=== PATIENT | male | born 1955 | race American Indian/Alaskan Native ===

== ENCOUNTER 2019-10-05 19:23 | Inpatient (IN) | payer MEDICAID ==
[2019-10-05 19:56] LABS: Basophils % (Auto) 0.9 % (0.0-1.8); Eosinophils # (Auto) 0.3 K/mm3 (0.0-0.4); Eosinophils % (Auto) 7.4 % (0.0-4.3); Hematocrit 38.6 % (35.5-45.6); Hemoglobin 12.9 gm/dl (11.8-15.2); Lymphocytes # (Auto) 1.1 K/mm3 (1.2-5.4); Lymphocytes % (Auto) 26.8 % (13.4-35.0); Mean Corpuscular HGB Conc 34 % (32-34); Mean Corpuscular Volume 98 fl (84-94); Monocytes # (Auto) 0.3 K/mm3 (0.0-0.8); Monocytes % (Auto) 6.7 % (0.0-7.3); Platelet Count 148 K/mm3 (140-440); Red Blood Count 3.94 M/mm3 (3.65-5.03); Red Cell Distribution Width 13.4 % (13.2-15.2)
[2019-10-05 20:10] LABS: INR 1.19 (0.87-1.13)
[2019-10-05 20:11] LABS: Partial Thromboplastin Time 30.6 Sec. (24.2-36.6)
[2019-10-05 20:18] LABS: Alanine Aminotransferase 30 units/L (7-56); Albumin 3.6 g/dL (3.9-5); BUN/Creatinine Ratio 16; Blood Urea Nitrogen 16 mg/dL (9-20); Calcium 9.3 mg/dL (8.4-10.2); Hemolysis Index 6
[2019-10-05] MEDS ORDERED: NITROGLYCERIN 2% OINT 1 GM TP ONE (20:50)
[2019-10-05] MEDS ORDERED: HYDROcodone/ACETAMINOPHEN 5-325 MG TAB PO ONE (20:50)
--- NOTE | 2019-10-05 21:16 | Emergency Department Report ---
ED Chest Pain HPI - General Chief Complaint: Chest Pain Stated Complaint: SHARP CHEST PAIN LEG PAIN Time Seen by Provider: 10/05/19 19:34 Source: patient Mode of arrival: Ambulatory Limitations: No Limitations - History of Present Illness Initial Comments: 63-year-old male with a past medical history of GERD, CAD with stent x2, CVA with residual right-sided weakness, asthma, and cocaine abuse presents to the hospital from [facility] due to chest pain and right leg pain. Patient states he is also had a left jaw pain as per order written from [place] patient was sent to the ER for severe pain to right leg and to rule out DVT. Patient was medically cleared on 10/04/2019 for suicidal ideation, auditory hallucinations, and depression by [facility]. This work-up was reviewed and included to negative troponins, negative portable chest x-ray, and a UDS positive for cocaine and opioids. Patient denies opiate abuse and states he was provided Percocet at the hospital. Patient states he has had a right lower extremity pain for the past 4 days and was told by the doctor at [place] it may be due to muscle spasm. Patient is also currently on Xarelto Patient is a poor historian. Initially states that he had 2 stents placed several months ago. When questioned why he was on Xarelto it seems as though he was diagnosed with a "PE" pulmonary embolism at this time as well. History of pulmonary embolism is not documented on his past medical history that presented with him from [place] and previous clearance hospital. Patient does states he has a card showing where his cardiac stents are but it is at home. Severity scale (0 -10): 10 - Related Data Home Medications Medication Instructions Recorded Confirmed Last Taken Aspirin EC [Halfprin EC] 1 tab PO DAILY 10/06/19 10/06/19 10/05/19 Atorvastatin [Lipitor] 80 mg PO QHS 10/06/19 10/06/[address] [Depakote Dr] 250 mg PO QAM 10/06/19 10/06/19 Unknown Divalproex ER [Depakote ER] 500 mg PO QHS 10/06/19 10/06/19 Unknown Gabapentin 300 mg PO BID 10/06/19 10/06/19 Unknown ISOSORBIDE MONOnitrate [Imdur ER] 60 mg PO QDAY 10/06/19 10/06/19 Unknown Mirtazapine [Remeron 15mg TAB] 15 mg PO QHS 10/06/19 10/06/19 Unknown Nitroglycerin [Nitrostat] 0.4 mg SL PRN PRN 10/06/19 10/06/19 Unknown Pantoprazole [Protonix TAB] 40 mg PO QDAY 10/06/19 10/06/19 Unknown Rivaroxaban [Xarelto] 10 mg PO QDAY 10/06/19 10/06/19 Unknown amLODIPine 10 mg PO DAILY 10/06/19 10/06/19 Unknown diphenhydrAMINE [Benadryl CAP] 50 mg PO Q4HR PRN 10/06/19 10/06/19 Unknown haloperidoL [Haldol] 5 mg PO Q4HR PRN 10/06/19 10/06/19 Unknown lisinopriL [Zestril TAB] 20 mg PO QDAY 10/06/19 10/06/19 Unknown methOCARBAMOL [Robaxin TAB] 750 mg PO BID 10/06/19 10/06/19 Unknown Previous Rx's Medication Instructions Recorded Last Taken Type ARIPiprazole [Abilify TAB] 2 mg PO DAILY #30 tab 10/07/19 Unknown Rx Allergies Allergy/AdvReac Type Severity Reaction Status Date / Time carvedilol [From Coreg] AdvReac Unknown Verified 10/05/19 21:19 Penicillins AdvReac Unknown Verified 10/05/19 21:19 Sulfa (Sulfonamide AdvReac Unknown Verified 10/05/19 21:19 Antibiotics) Heart Score - HEART Score History: Slightly suspicious EKG: Non-specific Age: 45-65 Risk factors: > 3 risk factors or hx of atherosclerotic disease Troponin: < normal limit HEART Score: 4 ED Review of Systems ROS: Stated complaint: SHARP CHEST PAIN LEG PAIN Other details as noted in HPI Comment: All other systems reviewed and negative ED Past Medical Hx - Past Medical History Previous Medical History?: Yes Hx CVA: Yes Hx Heart Attack/AMI: Yes (2010, 2 stents ?placed this year) Hx Asthma: Yes - Surgical History Past Surgical History?: No - Social History Smoking Status: Never Smoker Substance Use Type: None - Medications Home Medications: Home Medications Medication Instructions Recorded Confirmed Last Taken Type Aspirin EC [Halfprin EC] 1 tab PO DAILY 10/06/19 10/06/1910/04/20 History Atorvastatin [Lipitor] 80 mg PO QHS 10/06/19 10/06/[address] [Depakote Dr] 250 mg PO QAM 10/06/19 10/06/19 Unknown History Divalproex ER [Depakote ER] 500 mg PO QHS 10/06/19 10/06/19 Unknown History Gabapentin 300 mg PO BID 10/06/19 10/06/19 Unknown History ISOSORBIDE MONOnitrate [Imdur ER] 60 mg PO QDAY 10/06/19 10/06/19 Unknown History Mirtazapine [Remeron 15mg TAB] 15 mg PO QHS 10/06/19 10/06/19 Unknown History Nitroglycerin [Nitrostat] 0.4 mg SL PRN PRN 10/06/19 10/06/19 Unknown History Pantoprazole [Protonix TAB] 40 mg PO QDAY 10/06/19 10/06/19 Unknown History Rivaroxaban [Xarelto] 10 mg PO QDAY 10/06/19 10/06/19 Unknown History amLODIPine 10 mg PO DAILY 10/06/19 10/06/19 Unknown History diphenhydrAMINE [Benadryl CAP] 50 mg PO Q4HR PRN 10/06/19 10/06/19 Unknown History haloperidoL [Haldol] 5 mg PO Q4HR PRN 10/06/19 10/06/19 Unknown History lisinopriL [Zestril TAB] 20 mg PO QDAY 10/06/19 10/06/19 Unknown History methOCARBAMOL [Robaxin TAB] 750 mg PO BID 10/06/19 10/06/19 Unknown History ARIPiprazole [Abilify TAB] 2 mg PO DAILY #30 tab 10/07/19 Unknown Rx ED Physical Exam - General Limitations: No Limitations - Other Other exam information: General: No acute distress Head: Atraumatic Eyes: normal appearance ENT: Patient has tenderness at the left mandible area. Patient does not have most of his teeth at this area but of the posterior molar area appears to have residual dental Vandana. No gum swelling, facial swelling, or visible abscess Neck: Normal appearance, no midline tenderness Chest: Clear to auscultation bilaterally CV: Regular rate and rhythm Abdomen: Soft, normal bowel sounds, nontender, nondistended, no rebound or guarding Back: Normal inspection Extremity: Normal inspection, no edema or leg asymmetry. Tenderness to right posterior calf and popliteal area. Unable to palpate DP pulse but it is audible with Doppler Neuro: Alert O x 3, no facial asymmetry, speech clear, 4+/5 strength left arm compared to 5/5 on the right Psych: Appropriate behavior Skin: No rash ED Course Vital Signs 10/05/19 10/05/19 10/05/19 19:28 19:40 19:46 Temperature 98.3 F Pulse Rate 78 75 Respiratory 25 H 24 Rate Blood Pressure Blood Pressure [left arm] O2 Sat by Pulse 94 96 98 Oximetry 10/05/19 10/05/19 10/05/19 19:49 20:00 20:16 Temperature Pulse Rate 77 78 Respiratory 22 15 Rate Blood Pressure 146/87 Blood Pressure 146/87 [left arm] O2 Sat by Pulse 98 98 Oximetry 10/05/19 10/05/19 10/05/19 20:30 20:46 20:55 Temperature Pulse Rate 80 91 H 79 Respiratory 22 23 Rate Blood Pressure 146/87 146/87 150/82 Blood Pressure [left arm] O2 Sat by Pulse 99 99 Oximetry 10/05/19 10/05/19 10/05/19 21:00 21:16 21:30 Temperature Pulse Rate 79 69 74 Respiratory 17 16 24 Rate Blood Pressure 146/87 129/78 129/78 Blood Pressure [left arm] O2 Sat by Pulse 97 99 98 Oximetry 10/05/19 10/05/19 10/05/19 21:46 22:00 22:16 Temperature Pulse Rate 77 73 72 Respiratory 22 19 25 H Rate Blood Pressure 129/78 129/78 125/71 Blood Pressure [left arm] O2 Sat by Pulse 98 98 99 Oximetry 10/05/19 10/05/19 10/05/19 22:30 22:46 23:01 Temperature Pulse Rate 77 Respiratory 13 13 14 Rate Blood Pressure 125/71 125/71 152/70 Blood Pressure [left arm] O2 Sat by Pulse 97 97 99 Oximetry 10/05/19 10/05/19 10/05/19 23:04 23:15 23:27 Temperature Pulse Rate 82 Respiratory 17 19 Rate Blood Pressure 125/71 125/71 Blood Pressure [left arm] O2 Sat by Pulse 90 Oximetry 10/05/19 10/05/19 10/05/19 23:31 23:41 23:51 Temperature Pulse Rate Respiratory 25 H 22 16 Rate Blood Pressure 125/71 125/71 125/71 Blood Pressure [left arm] O2 Sat by Pulse Oximetry 10/06/19 10/06/19 10/06/19 00:01 00:11 00:45 Temperature 97.6 F Pulse Rate 89 Respiratory 15 22 18 Rate Blood Pressure 143/76 143/76 156/88 Blood Pressure [left arm] O2 Sat by Pulse 95 Oximetry ERICK score - Erick Score Age > 65: (0) No Aspirin use within the Past 7 Days: (0) No 3 or more CAD Risk Factors: (1) Yes 2 or more Angina events in past 24 hrs: (1) Yes Known CAD with more than 50% Stenosis: (1) Yes Elevated Cardiac Markers: (0) No ST Deviation Greater than 0.5mm: (0) No ERICK Score: 3 ED Medical Decision Making - Lab Data Result diagrams: 10/05/19 19:37 10/05/19 19:37 Lab Results 10/05/19 10/05/19 10/05/19 Range/Units 19:37 19:37 19:37 WBC 4.3 L (4.5-11.0) K/mm3 RBC 3.94 (3.65-5.03) M/mm3 Hgb 12.9 (11.8-15.2) gm/dl Hct 38.6 (35.5-45.6) % MCV 98 H (84-94) fl MCH 33 H (28-32) pg MCHC 34 (32-34) % RDW 13.4 (13.2-15.2) % Plt Count 148 (140-440) K/mm3 Lymph % (Auto) 26.8 (13.4-35.0) % [place] % (Auto) 6.7 (0.0-7.3) % Eos % (Auto) 7.4 H (0.0-4.3) % Baso % (Auto) 0.9 (0.0-1.8) % Lymph # 1.1 L (1.2-5.4) K/mm3 [place] # 0.3 (0.0-0.8) K/mm3 Eos # 0.3 (0.0-0.4) K/mm3 Baso # 0.0 (0.0-0.1) K/mm3 Seg Neutrophils % 58.2 (40.0-70.0) % Seg Neutrophils # 2.5 (1.8-7.7) K/mm3 PT 14.9 (12.2-14.9) Sec. INR 1.19 H (0.87-1.13) APTT 30.6 (24.2-36.6) Sec. D-Dimer 300.84 H (0-234) ng/mlDDU Sodium 141 (137-145) mmol/L Potassium 4.1 (3.6-5.0) mmol/L Chloride 106.8 (98-107) mmol/L Carbon Dioxide 22 (22-30) mmol/L Anion Gap 16 mmol/L BUN 16 (9-20) mg/dL Creatinine 1.0 (0.8-1.5) mg/dL Estimated GFR > 60 ml/min BUN/Creatinine Ratio 16 % Glucose 119 H (75-100) mg/dL Calcium 9.3 (8.4-10.2) mg/dL Total Bilirubin 0.30 (0.1-1.2) mg/dL AST 25 (5-40) units/L ALT 30 (7-56) units/L Alkaline Phosphatase 122 (35-129) units/L Troponin T < 0.010 (0.00-0.029) ng/mL Total Protein 6.7 (6.3-8.2) g/dL Albumin 3.6 L (3.9-5) g/dL Albumin/Globulin Ratio 1.2 % - EKG Data -: EKG Interpreted by Me (LVH, RBBB) EKG shows normal: sinus rhythm, ST-T waves (no stemi) Rate: normal (78) - EKG Data When compared to previous EKG there are: previous EKG unavailable - Radiology Data Radiology results: report reviewed CHEST 1 VIEW INDICATION: MAIN: Chest Pain; Leg pain and Mid CP started today, pain radiates to left arm and left jaw, describes pain as sharp 8/10. COMPARISON: none FINDINGS: SUPPORT DEVICES: None. HEART / MEDIASTINUM: No significant abnormality. LUNGS / PLEURA: No significant pulmonary or pleural abnormality. No pneumothorax. ADDITIONAL FINDINGS: IMPRESSION: 1. No acute cardiopulmonary disease CTA CHEST WITH IV CONTRAST INDICATION / CLINICAL INFORMATION: MAIN: cp, pt c/o rt lower extremity pain, 100cc [id number]. TECHNIQUE: Axial CT images were obtained through the chest after injection of IV contrast. 3 plane MIP and/or 3D reconstructions were produced. All CT scans at this location are performed using CT dose reduction for ALARA by means of automated exposure control. COMPARISON: None available. FINDINGS: PULMONARY ARTERIES: No pulmonary emboli. THORACIC AORTA: No significant abnormality. HEART: Mild cardiac enlargement CORONARY ARTERIES: No significant calcification. Coronary stents in place. PLEURA: No pleural effusion. No pneumothorax. LYMPH NODES: Several prominent lymph nodes within the mediastinum LUNGS: No acute air space or interstitial disease. ADDITIONAL FINDINGS: None. UPPER ABDOMEN: Small hiatal hernia is present. SKELETAL STRUCTURES: No significant osseous abnormality. IMPRESSION: 1. No CT evidence for pulmonary embolism. 2. Mild cardiac enlargement - Medical Decision Making Patient presents to the ED with chest pain x1 day and right leg pain x4 days. Cough possible history of pulmonary embolism unknown if history of DVT.. CT ang iogram negative for pulmonary embolism. Unable to obtain Doppler of right leg today however, but no leg edema noted and patient is currently on Xarelto. Patient treated in the ED with [place] and nitroglycerin paste will be admitted due to chest pain for medical clearance prior to transport back to [place]. Critical Care Time: No Critical care attestation.: If time is entered above; I have spent that time in minutes in the direct care of this critically ill patient, excluding procedure time. ED Disposition Clinical Impression: Chest pain, Right leg pain, assistant terminal manager (current) use of anticoagulants, History of heart artery stent, History of pulmonary embolism, Suicidal ideation, Depression, Cocaine abuse Disposition: OP ADMIT IP TO THIS HOSP Is pt being admited?: Yes Condition: Fair Time of Disposition: 22:27 (Dr Ashley/hosp)
[2019-10-05] MEDS ORDERED: ONDANSETRON 4 MG/2 ML INJ IV PRN (23:28)
[2019-10-05] MEDS ORDERED: ACETAMINOPHEN 325 MG TAB PO PRN (23:30)
[2019-10-05] MEDS ORDERED: NITROGLYCERIN 0.4 MG TAB SUBL SL PRN (23:33)
[2019-10-06] MEDS: MORPHINE 2 MG/1 ML INJ IV PRN ×5 (00:57→19:42)
[2019-10-06 01:37] LABS: Creatine Kinase MB 2.7 ng/mL (0.0-4.0)
[2019-10-06] MEDS: NITROGLYCERIN 2% OINT 1 GM TP SCH ×4 (05:24→17:43)
[2019-10-06 07:57] LABS: Creatine Kinase MB 2.3 ng/mL (0.0-4.0)
[2019-10-06] MEDS ORDERED: REGADENOSON 0.4 MG/5 ML INJ IV ONE ×2 (08:04→08:10)
[2019-10-06] MEDS: ASPIRIN 81 MG TAB CHEW PO SCH (11:50)
[2019-10-06] MEDS ORDERED: TEMAZEPAM 15 MG CAP PO ONE (21:37)
[2019-10-07] MEDS: MORPHINE 2 MG/1 ML INJ IV PRN ×7 (00:29→21:50)
[2019-10-07] MEDS: NITROGLYCERIN 2% OINT 1 GM TP SCH ×4 (05:33→18:24)
[2019-10-07] MEDS: ASPIRIN 81 MG TAB CHEW PO SCH (09:35)
[2019-10-07] MEDS ORDERED: NITROGLYCERIN 0.4 MG TAB SUBL SL PRN (09:42)
[2019-10-07] MEDS ORDERED: HALOPERIDOL 5 MG TAB PO PRN (09:42)
[2019-10-07] MEDS ORDERED: diphenhydrAMINE 50 MG CAP PO PRN (09:42)
[2019-10-07] MEDS: LISINOPRIL 20 MG TAB PO SCH (11:37)
[2019-10-07] MEDS: GABAPENTIN 300 MG CAP PO SCH ×2 (11:37→21:51)
[2019-10-07] MEDS: DIVALPROEX DR 250 MG TAB PO SCH (11:38)
[2019-10-07] MEDS: amLODIPine 10 MG TAB PO SCH (11:38)
[2019-10-07] MEDS: RIVAROXABAN 10 MG TAB PO SCH (12:30)
[2019-10-07] MEDS: ASPIRIN EC 81 MG TAB PO SCH (12:36)
[2019-10-07] MEDS: PANTOPRAZOLE 40 MG TAB PO SCH (12:37)
[2019-10-07] MEDS ORDERED: ARIPiprazole 5 MG TAB PO SCH (13:00)
[2019-10-07] MEDS: ARIPiprazole 5 MG TAB PO SCH (18:24)
[2019-10-07] MEDS ORDERED: MIRTAZAPINE 15 MG TAB PO SCH (22:00)
[2019-10-07] MEDS ORDERED: DIVALPROEX ER 500 MG TAB PO SCH (22:00)
[2019-10-08] MEDS: MORPHINE 2 MG/1 ML INJ IV PRN ×2 (05:42→13:17)
[2019-10-08] MEDS: NITROGLYCERIN 2% OINT 1 GM TP SCH ×3 (05:42→14:18)
[2019-10-08] MEDS: ASPIRIN EC 81 MG TAB PO SCH (09:16)
[2019-10-08] MEDS: RIVAROXABAN 10 MG TAB PO SCH (09:17)
[2019-10-08] MEDS: PANTOPRAZOLE 40 MG TAB PO SCH (09:17)
[2019-10-08] MEDS: LISINOPRIL 20 MG TAB PO SCH (09:17)
[2019-10-08] MEDS: amLODIPine 10 MG TAB PO SCH (09:18)
[2019-10-08] MEDS: ARIPiprazole 5 MG TAB PO SCH (09:18)
[2019-10-08] MEDS: DIVALPROEX DR 250 MG TAB PO SCH (09:18)
[2019-10-08] MEDS: GABAPENTIN 300 MG CAP PO SCH (09:18)
[2019-10-08 12:48] VITALS: BP 135/73
== END 2019-10-08 18:02 | disposition home or self-care (01) | DRG 392 ==
LOC: ED 19:23 → 4A 22:27 → OBSVTOIN 10-06 13:47
PROVIDERS: ADMIT Internal Medicine; ATTEND Internal Medicine
DX: K21.9 Gastro-esophageal reflux disease without esophagitis (principal); F14.10 Cocaine abuse, uncomplicated; R45.851 Suicidal ideations; F32.9 Major depressive disorder, single episode, unspecified; M79.604 Pain in right leg; I25.10 Atherosclerotic heart disease of native coronary artery without angina pectoris; J45.909 Unspecified asthma, uncomplicated; I45.10 Unspecified right bundle-branch block; G40.909 Epilepsy, unspecified, not intractable, without status epilepticus; Z88.2 Allergy status to sulfonamides; Z88.0 Allergy status to penicillin; Z95.5 Presence of coronary angioplasty implant and graft; I69.351 Hemiplegia and hemiparesis following cerebral infarction affecting right dominant side; I25.2 Old myocardial infarction; Z79.01 Long term (current) use of anticoagulants; Z86.711 Personal history of pulmonary embolism
CPT/HCPCS: 36415; 71045; 71275; 78452; 80053; 82550; 82553; 84484; 85025; 85379; 85610; 85730; 93017; G0378; A9270-GY; A9502; J2270; J2785; Q9967